=== PATIENT | female | born 1985 | race Caucasian/White ===

== ENCOUNTER 2016-10-28 13:25 | Emergency (ER) | payer OTHER ==
[2016-10-28] MEDS ORDERED: HYDROmorphone HCL 1 MG/ML DISP.SYRIN ONE ×2 (14:06→15:04)
[2016-10-28] MEDS ORDERED: HYDROmorphone HCL 1 MG/ML DISP.SYRIN IV ONE ×2 (14:06→15:02)
[2016-10-28] MEDS ORDERED: ONDANSETRON HCL/PF 2 MG/ML VIAL ONE (14:27)
[2016-10-28] MEDS ORDERED: ONDANSETRON HCL/PF 2 MG/ML VIAL IV ONE (14:28)
[2016-10-28] MEDS ORDERED: NORMAL SALINE 1,000 ML IV ONE ×3 (14:32→15:06)
[2016-10-28 15:39] LABS: Albumin * 3.6 gm/dl (3.4-5.0); Anion Gap 17.8 mmol/L (6.8-13.8); BUN/Creatinine Ratio 10.3 (9.0-21.6); Bilirubin, Total 0.3 mg/dL (0.0-1.1); Ca. Corrected For Albumin 8.5 mg/dL (8.4-10.2); Calcium * 8.5 mg/dL (7.9-10.9); Potassium 3.8 mmol/L (3.4-4.6); Total Protein 7.3 gm/dL (6.2-8.2)
[2016-10-28 15:41] LABS: Hematocrit 37.1 % (37.0-47.0); Hemoglobin 12.5 gm/dL (12.5-16.0); Mean Cell Volume 89.6 fl (78-100); Mean Corpuscular Hemoglobin 30.2 pg (27-31); Mean Corpuscular Hgb Conc 33.7 g/dl (32-36); Mean Platelet Volume 11.9 fl (6.0-9.5); Neutrophil # 5.7 K/mm3 (1.3-6.0); Neutrophil % 71.5 % (42-75.0); Platelet Count 245 K/mm3 (150-450); Red Blood Count 4.14 M/mm3 (4.2-5.4)
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
[2016-10-28 16:30] VITALS: BP 116/95
== END 2016-10-28 16:38 | disposition short-term general hospital (02) ==
LOC: ER 13:25
DX: S02.42XB Fracture of alveolus of maxilla, initial encounter for open fracture (principal); S63.004A Unspecified dislocation of right wrist and hand, initial encounter; F17.210 Nicotine dependence, cigarettes, uncomplicated; Z90.49 Acquired absence of other specified parts of digestive tract; Z90.710 Acquired absence of both cervix and uterus; F41.1 Generalized anxiety disorder; V43.62XA Car passenger injured in collision with other type car in traffic accident, initial encounter; Y92.410 Unspecified street and highway as the place of occurrence of the external cause; S00.83XA Contusion of other part of head, initial encounter; S80.01XA Contusion of right knee, initial encounter

== ENCOUNTER 2016-11-05 12:44 | Emergency (ER) | payer OTHER ==
[2016-11-05 12:57] VITALS: BP 106/65
[2016-11-05] MEDS ORDERED: MECLIZINE HCL 25 MG TABLET PO ONE (14:09)
[2016-11-05] MEDS ORDERED: HYDROcodone/ACETAMINOPHEN 1 EACH TABLET PO ONE (14:09)
[2016-11-05] MEDS ORDERED: HYDROcodone/ACETAMINOPHEN 1 EACH TABLET ONE (14:13)
[2016-11-05] MEDS ORDERED: MECLIZINE HCL 25 MG TABLET ONE (14:13)
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
== END 2016-11-05 15:15 | disposition home or self-care (01) ==
LOC: ER 12:44
DX: R42 Dizziness and giddiness (principal); T50.905A Adverse effect of unspecified drugs, medicaments and biological substances, initial encounter; Z90.49 Acquired absence of other specified parts of digestive tract; Z90.710 Acquired absence of both cervix and uterus; F41.1 Generalized anxiety disorder

== ENCOUNTER 2017-02-15 19:40 | Emergency (ER) | payer OTHER ==
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
[2017-02-15 20:43] VITALS: BP 110/64
== END 2017-02-15 20:53 | disposition home or self-care (01) ==
LOC: ER 19:40
DX: M79.641 Pain in right hand (principal)